=== PATIENT | female | born 1955 | race African-American/Black ===

== ENCOUNTER 2020-05-22 10:33 | Outpatient (CLI) | payer OTHER | END 2020-05-22 12:52 | disposition home or self-care (01) | LOC: MRI 10:33 → EDBD 10:33 → MRI 12:15 | PROVIDERS: ATTEND Psychiatry & Neurology Clinical Neurophysiology | DX: M54.16 Radiculopathy, lumbar region (principal) | CPT/HCPCS: 72148 ==